=== PATIENT | female | born 1980 | race Caucasian/White ===

== ENCOUNTER 2018-05-08 13:08 | Emergency (ER) | payer SELFPAY ==
[2018-05-08] MEDS ORDERED: Ondansetron PF 4 MG/2 ML Vial ONE (13:16)
[2018-05-08] MEDS ORDERED: Sodium Chloride 0.9% 1,000 ML ONE (13:16)
[2018-05-08] MEDS ORDERED: Ibuprofen 200 MG TAB ONE ×2 (13:54→13:56)
[2018-05-08 14:03] LABS: BHCG - Serum Negative (NEGATIVE); Pregs Control Bar Appear? YES (CONTROL BAR)
[2018-05-08 14:15] LABS: Band 10 % (5-11); Hemoglobin 15.3 g/dL (12.0-16.0); Lymphocytes 2 % (21-51); MDiff Complete? YES; Mean Corpuscular HGB CONC 33.7 g/dL (32.0-36.0); Mean Corpuscular Hemoglobin 29.5 pg (27.0-31.0); Mean Corpuscular Volume 87.6 fL (78.0-98.0); Mean Platelet Volume 6.8 fL (7.4-10.4); Monocytes 6 % (0-10); Neutrophil 82 % (42-75); Platelet Count 182 thou/uL (130-400); RBC Distribution Width 11.8 % (11.5-14.5); Red Blood Cell (RBC) Count 5.18 mill/uL (4.20-5.40); White Blood Cell (WBC) Count 9.8 thou/uL (4.8-10.8)
[2018-05-08 14:28] LABS: ALT (SGPT) 12 U/L (8-55); AST (SGOT) 20 U/L (5-34); Albumin 4.6 g/dL (3.5-5.0); Alkaline Phosphatase 53 U/L (40-150); Anion Gap 16 mmol/L (10-20); BUN (Urea Nitrogen) 13 mg/dL (7.0-18.7); Bilirubin, Total 0.4 mg/dL (0.2-1.2); CK (CPK) 39 U/L (29-168); Calc. Creatinine Clearance 0 mL/min (70-130); Calcium 9.8 mg/dL (7.8-10.44); Carbon Dioxide 20 mmol/L (22-29); Chloride 101 mmol/L (98-107); Estimated GFR-MDRD 75; Globulin 3.2 g/dL (2.4-3.5); Glucose 110 mg/dL (70-105); Lipase 9 U/L (8-78); Potassium 4.2 mmol/L (3.5-5.1); Protein, Total 7.8 g/dL (6.0-8.3); Sodium 133 mmol/L (136-145)
--- NOTE | 2018-05-08 14:42 | RAD ---
CHEST ONE VIEW: History: Cough. Chest pain. FINDINGS: No comparison. Cardiac silhouette is unremarkable. Pulmonary vasculature upper limits of normal. Medi astinum is midline. No confluent airspace consolidation or evidence of pneumothorax. A V shaped thin metallic density projects over the lung apices and manubrium is favored to represent extrinsic artifa ct rather than an intrathoracic wire. IMPRESSION: Borderline pulmonary vascular congestion. POS: [facility]
[2018-05-08 15:00] LABS: Bilirubin Small (Negative); Blood, Urine Trace (Negative); Glucose, Urine (Dipstick) Negative (Negative); Leukocyte Negative (Negative); Nitrite Negative (Negative); Protein, Urine (Dipstick) 30 mg/dL (Neg-Trace); Specific Gravity, Urine 1.025 (1.005-1.030); Urobilinogen 0.2 mg/dL (0.2-1.0); pH, Urine 5.5 (5.0-9.0)
[2018-05-08 15:04] LABS: Clarity Hazy (Clear)
[2018-05-08 15:09] LABS: Bacteria/HPF 2+ HPF (None Seen); RBC/HPF 0-3 HPF (0-3); WBC/HPF 0-3 HPF (0-3)
== END 2018-05-08 15:28 | disposition home or self-care (01) ==
LOC: NAV ERS 13:08
DX: J11.1 Influenza due to unidentified influenza virus with other respiratory manifestations (principal)
CPT/HCPCS: 71045; 80053; 81003; 81015; 82550; 83690; 84703; 85025; 96361; 96374; J2405; J7050

== ENCOUNTER 2020-02-23 20:40 | Emergency (ER) | payer SELFPAY ==
[2020-02-23] MEDS ORDERED: Acetaminophen 500 MG TAB ONE (20:58)
[2020-02-23] MEDS ORDERED: Ibuprofen 800 MG TAB ONE (20:58)
[2020-02-24 14:43] LABS: SARS-CoV-2 MS2 Positive; SARS-CoV-2 N Gene Positive; SARS-CoV-2 S Gene Positive; SARS-CoV-2 by NAA DETECTED (NotDetected); SARS-CoV-2 orf1ab Positive
== END 2020-02-23 21:52 | disposition home or self-care (01) ==
LOC: NAV ERS 20:40
DX: U07.1 COVID-19 (principal); G43.909 Migraine, unspecified, not intractable, without status migrainosus
CPT/HCPCS: 87635; 87804; 99283; U0003

== ENCOUNTER 2021-02-25 18:43 | Emergency (ER) | payer OTHER ==
[2021-02-25] MEDS ORDERED: predniSONE 20 MG TAB ONE (19:37)
== END 2021-02-25 19:41 | disposition home or self-care (01) ==
LOC: NAV ERS 18:43
DX: M13.0 Polyarthritis, unspecified (principal); M25.562 Pain in left knee; M25.561 Pain in right knee; M25.572 Pain in left ankle and joints of left foot; M25.571 Pain in right ankle and joints of right foot; M25.522 Pain in left elbow; M25.521 Pain in right elbow; M25.542 Pain in joints of left hand; M25.541 Pain in joints of right hand; M25.512 Pain in left shoulder; M25.511 Pain in right shoulder; M25.552 Pain in left hip; M25.551 Pain in right hip; R63.4 Abnormal weight loss; Z68.43 Body mass index [BMI] 50.0-59.9, adult
CPT/HCPCS: 99283; J7512

== ENCOUNTER 2023-07-07 14:25 | Outpatient (CLI) | payer MEDICAID | END 2023-07-07 14:26 | disposition home or self-care (01) | LOC: NAV RAD 14:25 | PROVIDERS: ATTEND Nurse Practitioner Family | DX: R11.0 Nausea (principal) | CPT/HCPCS: 74018 ==

== ENCOUNTER 2024-10-24 16:33 | Emergency (ER) | payer MEDICAID, OTHER, SELFPAY ==
[~2024-10-24 16:33] MED LIST: Iopamidol 370 76% 100 ML VIAL ONE
[2024-10-24] MEDS ORDERED: Metoclopramide HCl 10 MG (2 mL) VIAL ONE (17:20)
[2024-10-24] MEDS ORDERED: diphenhydrAMINE 50 MG/ML VIAL ONE (17:20)
[2024-10-24 17:31] LABS: BHCG - Serum Negative (NEGATIVE)
[2024-10-24 17:32] LABS: Pregs Control Bar Appear? YES (CONTROL BAR)
[2024-10-24 17:41] LABS: ALT (SGPT) 9 U/L (Less than 34); AST (SGOT) 20 U/L (11-34); Albumin 4.5 g/dL (3.1-4.5); Alkaline Phosphatase 44 U/L (40-110); Anion Gap 20 mmol/L (10-20); BUN (Urea Nitrogen) 22 mg/dL (7.0-18.7); Bilirubin, Total 0.9 mg/dL (0.3-1.2); Calc. Creatinine Clearance 0 mL/min (70-130); Calcium 9.4 mg/dL (7.8-10.44); Carbon Dioxide 16 mmol/L (22-29); Chloride 102 mmol/L (98-107); Globulin 2.8 g/dL (2.4-3.5); Glucose 72 mg/dL (70-105); Magnesium 1.7 mg/dL (1.6-2.6); Potassium 4.4 mmol/L (3.5-5.1); Sodium 134 mmol/L (136-145)
[2024-10-24 17:58] LABS: #Basophils 0.0 thou/uL (0.0-0.2); #Eosinophils 0.1 thou/uL (0.0-0.7); #Lymphocytes 3.1 thou/uL (1.20-3.40); #Monocytes 0.7 thou/uL (0.11-0.59); #Neutrophils 7.2 thou/uL (1.40-6.50); %Basophils 0.3 % (0.0-1.0); %Eosinophils 1.2 % (0.0-10.0); %Lymphocytes 27.3 % (21.0-51.0); %Monocytes 6.5 % (0.0-10.0); %Neutrophils 64.7 % (42.0-75.0); Hematocrit 45.1 % (36.0-47.0); Hemoglobin 15.5 g/dL (12.0-16.0); Mean Corpuscular Hemoglobin 29.0 pg (27.0-31.0); Mean Corpuscular Volume 84.6 fl (78.0-98.0); Platelet Count 374 10x3/uL (130-400); Red Blood Cell (RBC) Count 5.33 mill/uL (4.20-5.40); White Blood Cell (WBC) Count 11.1 10x3/uL (4.8-10.8)
[2024-10-24] MEDS ORDERED: Ketorolac Tromethamine 30 MG (1 mL) VIAL ONE (19:56)
== END 2024-10-24 20:05 | disposition home or self-care (01) ==
LOC: NAV ERS 16:33
DX: R20.8 Other disturbances of skin sensation (principal); R29.704 NIHSS score 4
CPT/HCPCS: 70450; 70496; 70498; 80053; 83735; 84443; 84703; 85025; 93005; 96374; 96375; J1200; J1885; J2765; J2919; J7030; Q9967